=== PATIENT | female | born 1965 | race Asian ===

== ENCOUNTER 2020-09-04 08:00 | Outpatient (RCR) | payer OTHER, SELFPAY | END 2020-09-04 09:57 | disposition home or self-care (01) | LOC: HO.PTCHIC 08:00 | PROVIDERS: PCP Internal Medicine | DX: M75.51 Bursitis of right shoulder (principal); S40.011S Contusion of right shoulder, sequela | CPT/HCPCS: 97110; 97140; 97161 ==